=== PATIENT | male | born 1950 | race Caucasian/White ===

== ENCOUNTER → 2018-12-19 | Outpatient (CLI) | payer OTHER ==
--- NOTE | 2018-12-19 13:00 | RAD ---
Left hip, 2 views, 12/19/2018: HISTORY: Chronic left hip pain There is moderate narrowing of the left hip joint with subchondral sclerosis and extensive spurring. No fracture or dislocation is identified. Arterial calcifications are present. IMPRESSION: 1. 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 2. No acute bony abnormality is detected. Electronically signed by: Shorty Duncan MD (12/19/2018 12:57 PM) [facility]
== END | disposition home or self-care (01) ==
LOC: PMG 11:39
PROVIDERS: ATTEND Physician Assistant
DX: M16.12 Unilateral primary osteoarthritis, left hip (principal); I70.8 Atherosclerosis of other arteries
CPT/HCPCS: 73502